=== PATIENT | male | born 1980 ===

== ENCOUNTER 2017-04-23 14:17 | Emergency (ER) | payer OTHER ==
[~2017-04-23] VITALS: Ht 167.6 cm; Wt 104.3 kg
[2017-04-23 15:25] LABS: PLATELET COUNT 257 K/uL (142-355)
[2017-04-23 15:34] LABS: POTASSIUM 3.1 mmol/L (3.6-5.2); SODIUM 136 mmol/L (136-145)
== END 2017-04-23 16:31 | disposition home or self-care (01) ==
LOC: ED 14:17
DX: E87.6 Hypokalemia (principal); E11.9 Type 2 diabetes mellitus without complications; R79.89 Other specified abnormal findings of blood chemistry
CPT/HCPCS: 36415; 80053; 81000; 81002; 85027; 99283